=== PATIENT | female | born 1985 | race Caucasian/White ===

== ENCOUNTER 2016-12-25 12:30 | Inpatient (IN) | payer OTHER ==
[2016-12-25 14:30] LABS: BASOPHIL 0.3 % (0-2.0); EOSINOPHIL 0.2 % (0-4.5); MCH 27.5 pg (25.7-33.7); MCHC 32.7 g/dl (32.0-36.0); MEAN CELL VOLUME 84.2 fl (80-96); MEAN PLT VOLUME 10.1 fl (7.5-11.1); NEUTROPHILS 77.9 % (42.8-82.8); PLATELET COUNT 169 K/MM3 (134-434); RDW 15.8 % (11.6-15.6); WHITE BLOOD COUNT 8.4 K/mm3 (4.0-10.0)
[2016-12-25 14:46] LABS: INR 0.9 (0.82-1.09); PROTHROMBIN TIME (PATIENT) 9.9 SEC (9.98-11.88)
[2016-12-25 14:48] LABS: ACTIVATED PTT 25.8 SECONDS (26.9-34.4)
[2016-12-25 14:57] LABS: CALCIUM 8.8 mg/dL (8.5-10.1); COCKROFT - GAULT 128.86; CREATININE 0.7 mg/dL (0.55-1.02)
[2016-12-25 15:03] VITALS: BMI 26.7
--- NOTE | 2016-12-25 15:38 | HP ---
Past Medical History - Primary Care Physician PCP:: Laura Lai - Admission Chief Complaint: post dates 40.4 weeks. HO Macrosomia History of Present Illness: 31 yo EDC 12/21/16 EGA 40.4 weeks for induction History Source: Patient - Past Medical History ...: 3 ...Para: 2 ...Term: 2 ...: 0 ...Spon : 0 ...Induced : 0 ...Multiple Gestation: 0 ...LMP: 03/20/16 ... Weeks Gestation by Dates: 40.4 ...EDC by Dates: 01/04/17 ...EDC by Sono: 12/21/16 Additional Medical History: pos PPD - Past Surgical History Past Surgical History: Yes: None Hx Myomectomy: No Hx Transabdominal Cerclage: No - Smoking History Smoking history: Never smoked Have you smoked in the past 12 months: No Aproximately how many cigarettes per day: 1 - Alcohol/Substance Use Hx Alcohol Use: No History of Substance Use: reports: None Home Medications - Allergies Allergies/Adverse Reactions: Allergies Allergy/AdvReac Type Severity Reaction Status Date / Time No Known Allergies Allergy Verified 12/25/16 13:40 - Home Medications Home Medications: Ambulatory Orders Vit/Iron Fumarate/FA [ Tablet] 1 each PO DAILY 06/18/15 Review of Systems - Review of Systems Constitutional: reports: No Symptoms Eyes: reports: No Symptoms HENT: reports: No Symptoms Neck: reports: No Symptoms Cardiovascular: reports: No Symptoms Respiratory: reports: No Symptoms Gastrointestinal: reports: No Symptoms Genitourinary: reports: No Symptoms Breasts: reports: No Symptoms Reported Musculoskeletal: reports: No Symptoms Integumentary: reports: No Symptoms Neurological: reports: No Symptoms Endocrine: reports: No Symptoms Hematology/Lymphatic: reports: No Symptoms Psychiatric: reports: No Symptoms Physical Exam - Maternity Vital Signs: Vital Signs Temperature 97.9 F 12/25/16 14:46 Pulse Rate 73 12/25/16 14:46 Respiratory Rate 18 12/25/16 14:46 Blood Pressure 130/64 12/25/16 14:46 O2 Sat by Pulse Oximetry (%) Constitutional: Yes: Well Nourished, No Distress HENT: Yes: WNL Neck: Yes: WNL Cardiovascular: Yes: WNL Lungs: Clear to auscultation Breast(s): Yes: WNL - Abdominal Exam/OB Fundal Height: 40 Number of Fetuses: Single Presentation: Vertex Contractions: No Category: I Accelerations: Non-Uniform Decelerations: None - Vaginal Exam/OB Speculum Exam: No Dilatation (cm): 2 cm Effacement (%): 70 Amniotic Membrane Status: Intact (cervidil placed) Presentation: Vertex/Position Station: -1 - Physical Exam Extremities: Yes: WNL Edema: No Integumentary: Yes: WNL Psychiatric: Yes: WNL, Alert, Oriented - Labs Lab Results: CBC, BMP 12/25/16 14:15 12/25/16 14:15 Hemorrhage Risk Assessment - Risk Factors Risk Score: 0 Risk Level: Low Risk Problem List - Problems (1) Post-term Code(s): O48.0 - POST-TERM Assessment/Plan iup at 40.4 weeks Hx of Macrosomia - 4100gm Plan cervidil
[2016-12-25] MEDS ORDERED: ELECTROLYTE-148 SOLN 1,000 ML IV SCH (15:45)
[2016-12-25] MEDS ORDERED: AMPICILLIN - 2 GM in SODIUM CHLORIDE 100 ML IVPB ONE (16:00)
[2016-12-25] MEDS ORDERED: DINOPROSTONE 10 MG VAGINAL SUPPOSITORY VG ONE (17:15)
[2016-12-25] MEDS ORDERED: AMPICILLIN - 1 GM in SODIUM CHLORIDE 100 ML IVPB SCH (20:00)
[2016-12-25] MEDS ORDERED: BUTORPHANOL TARTRATE 1 MG/ML VIAL IVPUSH ONE (20:20)
[2016-12-25] MEDS: OXYTOCIN 20 UNITS in 0.9% NS 1,000 ML IV SCH ×2 (21:38→23:55)
[2016-12-25] MEDS ORDERED: METHYLERGONOVINE MALEATE 0.2 MG/1 ML AMP IM PRN ×2 (22:10→22:14)
[2016-12-25] MEDS ORDERED: BISACODYL 10 MG SUPP.RECT RC PRN (22:14)
[2016-12-25] MEDS ORDERED: BENZOCAINE 28 GM HEMORRHOIDAL OINTMENT TP PRN (22:14)
[2016-12-25] MEDS ORDERED: WITCH HAZEL 50% (TUCKS) 40 PAD/JAR PAD TP PRN (22:14)
[2016-12-25] MEDS ORDERED: BENZOCAINE 20% 57 GM BOTTLE TP PRN (22:14)
--- NOTE | 2016-12-25 22:42 | PN ---
Delivery - Delivery Type of Anesthesia: Local Episiotomy/Laceration: Perineal Extension/lac, 1st degree EBL (cc): 300 ( of living male a first degree perineal tear was repaired under local anesthesia both maternal and condition are stable and infant is taken to the nursery) Delivery, Single - Feeding Plan Initial Plan: Exclusive throughout hospitalization
[2016-12-25] MEDS: IBUPROFEN 600 MG TABLET (FP) PO PRN (23:52)
--- NOTE | 2016-12-26 07:01 | DS ---
Physical Examination Vital Signs: Vital Signs Temperature 98.1 F 12/26/16 05:27 Pulse Rate 59 L 12/26/16 05:27 Respiratory Rate 18 12/26/16 05:27 Blood Pressure 115/68 12/26/16 05:27 O2 Sat by Pulse Oximetry (%) 100 12/25/16 22:45 Constitutional: Yes: Well Nourished, No Distress, Calm Eyes: Yes: WNL, Conjunctiva Clear HENT: Yes: WNL, Atraumatic, Normocephalic Neck: Yes: WNL, Supple Cardiovascular: Yes: WNL, Regular Rate and Rhythm Respiratory: Yes: WNL Gastrointestinal: Yes: WNL ...Rectal Exam: Yes: WNL Renal/: Yes: WNL Breast(s): Yes: WNL Musculoskeletal: Yes: WNL Extremities: Yes: WNL Edema: No Peripheral Pulses WNL: Yes Integumentary: Yes: WNL Neurological: Yes: Alert, Oriented ...Motor Strength: WNL Psychiatric: Yes: Alert, Oriented Labs: CBC, BMP 12/25/16 14:15 12/25/16 14:15 Discharge Summary Reason For Visit: CERVIDIL INDUCTION Current Active Problems Post-term (Acute) Procedures: Principal: s/p condition stable Hospital Course: unremarkable - Instructions Diet, Activity, Other Instructions: regular diet Disposition: HOME - Home Medications Comprehensive Discharge Medication List: Ambulatory Orders Vit/Iron Fumarate/FA [ Tablet] 1 each PO DAILY 06/18/15 continue vitamins motrin prn pain
[2016-12-26] MEDS: OXYTOCIN 20 UNITS in 0.9% NS 1,000 ML IV SCH (08:00)
[2016-12-26 08:05] LABS: BASOPHIL 0.3 % (0-2.0); EOSINOPHIL 0.1 % (0-4.5); MCH 27.4 pg (25.7-33.7); MCHC 32.2 g/dl (32.0-36.0); MEAN CELL VOLUME 84.8 fl (80-96); MEAN PLT VOLUME 10.1 fl (7.5-11.1); NEUTROPHILS 84.5 % (42.8-82.8); PLATELET COUNT 155 K/MM3 (134-434); RDW 15.4 % (11.6-15.6); WHITE BLOOD COUNT 14.3 K/mm3 (4.0-10.0)
[2016-12-26] MEDS: IBUPROFEN 600 MG TABLET (FP) PO PRN ×2 (09:36→15:57)
[2016-12-26] MEDS: PRENATAL VITAMINS W/ FOLIC ACID TABLET (FP) PO SCH (09:36)
[2016-12-26] MEDS: ACETAMINOPHEN 325 MG TABLET (FP) PO PRN ×2 (11:53→15:58)
[2016-12-26] MEDS ORDERED: oxyCODONE HCL 5 MG TABLET PO PRN (17:35)
[2016-12-26] MEDS ORDERED: SENNOSIDES/DOCUSATE COMBO (SENNA PLUS) TABLET (UD) PO PRN (22:00)
--- NOTE | 2016-12-27 06:29 | PN ---
Post Note - Post Date of Delivery: 12/25/16 Vital Signs: Vital Signs - 24 hr 12/26/16 12/26/16 12/26/16 07:40 14:00 18:00 Temperature 98.1 F 98.3 F 97.9 F Pulse Rate 70 70 74 Respiratory 20 20 20 Rate Blood Pressure 126/81 121/69 120/74 12/26/16 22:00 Temperature 98.0 F Pulse Rate 66 Respiratory 18 Rate Blood Pressure 112/53 Labs: Laboratory Results - last 24 hr 12/25/16 12/26/16 14:15 06:00 WBC 14.3 H D RBC 4.51 Hgb 12.3 Hct 38.2 MCV 84.8 MCHC 32.2 RDW 15.4 Plt Count 155 MPV 10.1 Neutrophils % 84.5 H Lymphocytes % 10.0 D Monocytes % 5.1 Eosinophils % 0.1 Basophils % 0.3 RPR Titer Nonreactive - Subjective Subjective: No Complaints - Objective Afebrile: Yes Breast: Not engorged Abdomen: Soft, Non-tender Uterus: Fundus firm Vagina: Scant lochia Extremities: Non-tender - Assessment/Plan (1) Post-term Assessment: S/P Normal Plan: Routine Care, Other ([facility] HOme)
[2016-12-27] MEDS: PRENATAL VITAMINS W/ FOLIC ACID TABLET (FP) PO SCH (09:11)
[2016-12-27] MEDS: IBUPROFEN 600 MG TABLET (FP) PO PRN (09:11)
[2016-12-27] MEDS: ACETAMINOPHEN 325 MG TABLET (FP) PO PRN (09:12)
[2016-12-27 10:23] VITALS: BP 105/65; PULSE 61; TEMP 97.7
== END 2016-12-27 11:50 | disposition home or self-care (01) | DRG 560 ==
LOC: JDEL 12:30 → JLDR 13:00 → J3W 23:24
PROVIDERS: ADMIT Obstetrics & Gynecology; ATTEND Obstetrics & Gynecology
PROC: 10E0XZZ Delivery of Products of Conception, External Approach (ICD-10-PCS; principal; 2016-12-25)
PROC: 0HQ9XZZ Repair Perineum Skin, External Approach (ICD-10-PCS; 2016-12-25)
DX: O48.0 Post-term pregnancy (principal); O36.63X0 Maternal care for excessive fetal growth, third trimester, not applicable or unspecified; O70.0 First degree perineal laceration during delivery; Z3A.40 40 weeks gestation of pregnancy; Z37.0 Single live birth
CPT/HCPCS: 36415; 59409; 71020-TC; 80048; 85025; 85610; 85730; 86593; 86850; 86900; 86901